=== PATIENT | female | born 1980 | race Caucasian/White ===

== ENCOUNTER 2025-03-19 12:26 | Emergency (ER) | payer OTHER, SELFPAY ==
[2025-03-19 12:30] VITALS: BP 149/89; PULSE 100; RESP 16; TEMP 36.6; O2SAT 100
--- OUTSIDE RECORDS SUMMARY | 2025-03-19 12:30 | XMS_ITS | Continuity of Care Document ---
Author Organization [facility] Address [address] [facility] [address] [place] [address] Phone Care Team Providers Care Respiratory Care Practitioner Name Role Phone Ardon Ramon Unavailable Unavailable Allergies, Adverse Reactions, Alerts Substance Reaction Status Criticality Penicillins Active No Information Medications Medication Instructions Dosage Effective Dates (start - stop) Status Comments amitriptyline 50 mg tablet TAKE 1 TABLET BY MOUTH ONCE DAILY AT BEDTIME - Active lisinopril 5 mg tablet TAKE 1 TABLET BY MOUTH ONCE DAILY - Active meloxicam 15 mg tablet TAKE 1 TABLET BY MOUTH ONCE DAILY - Active sumatriptan 100 mg tablet TAKE 1 TABLET BY MOUTH AT ONSET OF MIGRAINE; MAY REPEAT IN 2 HOURS NEEDED; MAX 2 TABLETS IN 24 HOURS - Active insulin lispro (U-100) 100 unit/mL subcutaneous solution INJECT UP TO 180 UNITS PER DAY IN DIVIDED DOSES VIA INSULIN PUMP - Active metformin ER 500 mg tablet,extended release 24 hr - Active amitriptyline 25 mg tablet TAKE 1 TABLET BY MOUTH ONCE DAILY AT BEDTIME - Active buspirone 15 mg tablet TAKE 1 TABLET BY MOUTH TWICE DAILY - Active clindamycin HCl 300 mg capsule TAKE 1 CAPSULE BY MOUTH THREE TIMES DAILY FOR 7 DAYS - Active cephalexin 500 mg capsule - Active gabapentin 100 mg capsule - Active tramadol 50 mg tablet TAKE 1 TO 2 TABLET S BY MOUTH EVERY 4 TO 6 HOURS NEEDED FOR PAIN. MAX 5/24 HOUR - Active acyclovir 800 mg tablet TAKE ONE TABLET FIVE TIMES A DAY FOR 7 DAYS - Active lidocaine 5 % topical patch USE 1 PATCH EXTERNALLY ONCE DAILY TO MOST PAINFUL AREA AND REMOVE AFTER 12 HOURS. MAY REAPPLY A NEW PATCH 12 HOURS LATER - Active cyclobenzaprine 5 mg tablet - Active methylprednisolone 4 mg tablets in a dose pack - Active Procedures Procedure Date OFFICE/OUTPATIENT VISIT EST Wrist Long and Short Splint Wrist Long and Short Splint OFFICE/OUTPATIENT VISIT NEW Advance Directives Directive Yes / No Effective Date File Name No Information Encounters Encounter Description Practice Location Reason(s) For Visit Diagnoses Date Provider Providers Copied on Encounter [facility], [address], [place], [address], [place] tel:[phone] [facility] Osteoarthritis of carpometacarpal (CMC) joint of right thumb, unspecified osteoarthritis typeRight carpal tunnel syndrome Ardon Ramon. [address] [facility] [address], [place], [place], [address] . tel:[phone] OFFICE/OUTPA TIENT VISIT EST [facility], [address] [facility] [address], [place], [address], [place] tel:[phone] [facility] Osteoarthritis of carpometacarpal (CMC) joint of left thumb, unspecified osteoarthritis typeOsteoarthriti s of carpometacarpal (CMC) joint of right thumb, unspecified osteoarthritis typeLeft carpal tunnel syndromeRight carpal tunnel syndrome 5 Ardon Ramon. [address], [place], [place], [address] . tel:[phone] Referring Provider: Julee Schulte, [address] [facility] [address], [place], [address] . tel:[phone] OFFICE/OUTPA TIENT VISIT NEW [facility], [address], [place], [address], [place] tel:[phone] [facility] Vicki Right carpal tunnel syndromeLeft carpal tunnel syndromeOsteoarth ritis of carpometacarpal (CMC) joint of right thumb, unspecified osteoarthritis typeOsteoarthriti s of carpometacarpal (CMC) joint of left thumb, unspecified osteoarthritis type 5 Duglas Navarro. [address], [place], [place], [address] . tel:[phone] Referring Provider: Julee Schulte, [address] [facility] [address], [place], [address] . tel:[phone] Family History Family Member Type Diagnosis Age At Onset No Information Payers Payer name Insurance type Covered libertarian ID Yumiko lovelace(s) [employer] OT [id number] Social History Type Description Quantity Date Captured Comments Alcohol Use Details Unknown Caffeine Use Details Unknown Tobacco Use Status No Information Smoking Status No Information Sex Female Chief Complaint And Reason For Visit No Information Reason For Referral Reason For Referral No Information Plan Of Treatment Date Type Action Status Referral Ordered: Maxim Holly -Allopathic & Osteopathic Physicians : Physical Medicine & Rehabilitation (related to Left carpal tunnel syndrome) ordered Referral Ordered: MUSC TEST DONE W/N TEST COMP (EMG/NCS) Bilateral arm ordered Referral Referred To: Maxim Holly [address] [place], [place], [phone] Ordered: Referrals: Allopathic & Osteopathic Physicians : Physical Medicine & Rehabilitation. Maxim Holly. Diagnostic testing ordered Appointment Linette Shen Cancelled Appointment Linette Shen Scheduled Future Order: Lab Order Hemoglob in A1c ([id number]), Ordered on: Ordered History Of Present Illness Encounter Date Complaint History Of Prese nt Illness No Information Functional Status Date Functional Assessmen t No Information Instructions Date Instruction Additional Infor mation No Information Assessments Type Assessment Date assessment Osteoarthritis of ca rpometacarpal (CMC) joint of right thumb, unspecified osteoarthritis type May-06-2025 assessment Right carpal tunnel syndrome February Patient Care Teams Name Effective Dates (start - stop) Status Members No Information
--- NOTE | 2025-03-19 13:18 | ED_ITS ---
HPI - GI Bleed General Chief complaint: GI Bleed Stated complaint: rectal bleeding Time Seen by Provider: 03/19/25 12:51 Source: patient Mode of arrival: ambulatory Limitations: no limitations History of Present Illness HPI Narrative: This is a 45 year old female that presents to the ER for rectal bleeding. Reports she filled the toilet bowl with bright red blood today which concerned her and prompted her to be seen. Reports some history of constipation. Denies fevers, abdominal pain, diarrhea. Related Data Allergies Allergy/AdvReac Type Severity Reaction Status Date / Time Penicillins Allergy Mild Rash Verified 03/19/25 12:28 Review of Systems 2 Review of Systems: All systems reviewed & are unremarkable except as noted in HPI and below PMFSH Past Medical History Medical History (Updated 03/19/25 @ 14:25 by Tonie Garcia PA-C) Hyperlipidemia History of diabetes mellitus History of PCOS Surgical History Surgical History (Updated 03/19/25 @ 13:20 by Tonie Garcia PA-C) History of hysterectomy Social History Social History (Updated 03/19/25 @ 13:20 by Tonie Garcia PA-C) Smoking status: Never smoker Exam 2 Narrative: GENERAL: Well-appearing, well-nourished, and in no acute distress. HEAD: Normocephalic, atraumatic. EYES: EOMI. CHEST: Clear to auscultation. No respiratory distress. No wheezes rales or rhonchi HEART: Regular rate and rhythm. No murmur heard. Normal peripheral pulses. ABDOMEN: Soft, nontender, nondistended, normal active bowel sounds. EXTREMITIES: Normal range of motion. No edema. SKIN: Warm, dry, no rash. NEURO: No focal deficits. Alert and oriented x3. PSYCH: Normal mood and affect RECTAL: Small, external hemorrhoid, mild oozing of blood Course Course Emergency Course: Patient updated on her workup and agrees with plan of care Vital Signs Vital signs: Vital Signs Temperature 97.9 F 03/19/25 12:30 Pulse Rate 100 03/19/25 12:30 Respiratory Rate 16 03/19/25 12:30 Blood Pressure 149/89 H 03/19/25 12:30 Pulse Oximetry 100 03/19/25 12:30 Oxygen Delivery Room Air 03/19/25 12:30 Temperature 97.9 F 03/19/25 12:30 Pulse Rate 113 H 03/19/25 13:33 Respiratory Rate 16 03/19/25 13:27 Blood Pressure 149/117 H 03/19/25 13:33 Pulse Oximetry 100 03/19/25 13:27 Oxygen Delivery Room Air 03/19/25 12:30 MDM - GI Bleed MDM Narrative Medical decision making narrative: Patient presents to the emergency department for bright red blood per rectum. Blood pressure is stable. Mild oozing on exam from a small external hemorrhoid. Hemoglobin is 15.4. Metabolic panel with hyperglycemia. Patient is a known diabetic. Urine without evidence of infection. Was instructed on care of constipation. Will be started on hydrocortisone cream. She is to follow up with gastroenterology. She was given warnings to return to the ER Differential Diagnosis Differential diagnosis: Likely hemorrhoids, Lower gastrointestinal hemorrhage, hematochezia and anal fissure Lab Data Attestation: I reviewed the patient's lab results. 03/19/25 13:29 03/19/25 13:29 Labs: Lab Results 03/19/25 03/19/25 Range/Units 13:29 13:47 WBC 9.7 (4.5-10.0) K/mm3 RBC 5.25 (4.2-5.4) M/mm3 Hgb 15.4 H (12.0-15.0) g/dL Hct 46.6 (37.0-47.0) % MCV 88.8 (80-100) fl MCH 29.3 (26-34) pg MCHC 33.0 (32-36) g/dl RDW 13.7 (11.5-14.5) % Plt Count 193 (150-375) k/mm3 MPV 11.7 H (7.4-10.4) fl Immature Gran % (Auto) 1.1 H (0-0.5) % Neut % (Auto) 56.5 (45.5-73.1) % Lymph % (Auto) 33.2 (18.3-44.2) % [place] % (Auto) 6.8 (2.6-8.5) % Eos % (Auto) 1.7 (0-4.4) % Baso % (Auto) 0.7 (0.2-1.2) % Lymph # (Auto) 3.23 H (0.9-3.2) K/mm3 [place] # (Auto) 0.7 H (0.1-0.6) K/mm3 Eos # (Auto) 0.2 (0-0.3) K/mm3 Baso # (Auto) 0.1 (0.0-0.1) K/mm3 Abs Immat Gran (auto) 0.11 H (0.00-0.031) K/mm3 Absolute Neuts (auto) 5.5 (1.3-6.7) K/mm3 Absolute Nucleated RBC 0.000 (0.0-0.012) K/mm3 Nucleated RBC % 0.0 (0.0-0.2) % PT 12.6 (11.1-14.7) Seconds INR 0.9 APTT 28.8 (22.3-36.8) Seconds Sodium 138 (137-145) mmol/L Potassium 4.0 (3.4-5.0) mmol/L Chloride 104 (98-107) mmol/L Carbon Dioxide 22 (22-30) mmol/L Anion Gap 12 (4-12) mmol/L BUN 17 (7-17) mg/dL Creatinine 0.62 L (0.7-1.0) mg/dL Estim Creat Clear Calc 139 ml/min Estimated GFR > 60 (59 - ) Glucose 355 H (65-110) mg/dL Calcium 9.1 (8.4-10.2) mg/dL Total Bilirubin 0.4 (0.2-1.3) mg/dL AST 25 (14-36) U/L ALT 28 (6-35) U/L Alkaline Phosphatase 121 (38-126) U/L Total Protein 7.1 (6.3-8.2) g/dL Albumin 4.2 (3.5-5.1) g/dL Urine Color Yellow (Yellow) Urine Appearance Clear (Clear) Urine pH 5.0 (5.0-9.0) Ur Specific [place] 1.042 H (1.001-1.035) Urine Protein Negative (Negative) mg/dL Urine Glucose (UA) 3+ H (Negative) mg/dL Urine Ketones Trace H (Negative) mg/dL Ur Blood (Man) Negative (Negative) Urine Nitrate Negative (Negative) Urine Bilirubin Negative (Negative) Urine Urobilinogen 0.2 (<2.0) mg/dL Leukocyte Esterase Rfl Negative (Negative) MOUNA/UL Critical Care Time Critical Care Time Critical Care Time: No Discharge Plan Discharge Clinical Impression: Hemorrhoids Qualifiers: Hemorrhoid type: unspecified Qualified Code(s): K64.9 - Unspecified hemorrhoids Patient Disposition: Home Condition: Stable Instructions: Hemorrhoids (ED) Additional Instructions: Return to the ER if you experience fever, abdominal pain with nausea and vomiting, you are unable to keep down liquids or solids, or any other symptoms that are concerning to you Remain well hydrated. Take Colace daily. Increase fruit and vegetables in your diet. Apply hydrocortisone as prescribed Follow up with gastroenterology Patient Language: Spanish Prescriptions: New hydrocortisone [Procto-Med HC] 2.5 % cream with perineal applicator 1 applic RECTAL DAILY 7 Days Qty: 30 0RF Follow-up/Referrals: PHYSICIAN NOT ON STAFF,NONSTAFF [Non-Staff] - Frankie Main MD [Physician] -
[2025-03-19 13:27] VITALS: BP 146/88; PULSE 96; RESP 16; O2SAT 100
[2025-03-19 13:30] VITALS: BP 157/75; PULSE 103
[2025-03-19 13:32] VITALS: BP 150/95; PULSE 99
[2025-03-19 13:33] VITALS: BP 149/117; PULSE 113
[2025-03-19 13:38] LABS: Basophils Absolute Auto 0.1 K/mm3 (0.0-0.1); Basophils Percent Auto 0.7 % (0.2-1.2); Eosinophils Absolute Auto 0.2 K/mm3 (0-0.3); Eosinophils Percent Auto 1.7 % (0-4.4); Hematocrit 46.6 % (37.0-47.0); Hemoglobin 15.4 g/dL (12.0-15.0); Immature Granulocyte Absolute 0.11 K/mm3 (0.00-0.031); Immature Granulocyte Percent A 1.1 % (0-0.5); Lymphocytes Absolute Auto 3.23 K/mm3 (0.9-3.2); Lymphocytes Percent Auto 33.2 % (18.3-44.2); Mean Corpuscular Hemoglobin 29.3 pg (26-34); Mean Corpuscular Volume 88.8 fl (80-100); Mean Platelet Volume 11.7 fl (7.4-10.4); Monocytes Absolute Auto 0.7 K/mm3 (0.1-0.6); Monocytes Percent Auto 6.8 % (2.6-8.5); Neutrophils Absolute Auto 5.5 K/mm3 (1.3-6.7); Neutrophils Percent Auto 56.5 % (45.5-73.1); Platelet Count Result 193 k/mm3 (150-375); Red Blood Count 5.25 M/mm3 (4.2-5.4); Red Cell Distribution Width 13.7 % (11.5-14.5); White Blood Count 9.7 K/mm3 (4.5-10.0)
[2025-03-19 13:50] LABS: INR 0.9; Prothrombin Time 12.6 Seconds (11.1-14.7)
[2025-03-19 13:51] LABS: Alanine Aminotransferase 28 U/L (6-35); Albumin Level 4.2 g/dL (3.5-5.1); Alkaline Phosphatase 121 U/L (38-126); Anion Gap 12 mmol/L (4-12); Aspartate Amino Transferase 25 U/L (14-36); Bilirubin,Total 0.4 mg/dL (0.2-1.3); Blood Urea Nitrogen 17 mg/dL (7-17); Calcium 9.1 mg/dL (8.4-10.2); Carbon Dioxide 22 mmol/L (22-30); Chloride 104 mmol/L (98-107); Estimated CRCL calculation 139 ml/min; Estimated Glomerular Filt Rate > 60; Glucose 355 mg/dL (65-110); Partial Thromboplastin Time 28.8 Seconds (22.3-36.8); Sodium 138 mmol/L (137-145); Total Protein 7.1 g/dL (6.3-8.2)
--- OUTSIDE RECORDS SUMMARY | 2025-03-19 13:56 | XMS_ITS | Clinical Summary ---
Author Organization [facility] Address [address] [place] [address] Care Team Providers Care Managing Editor Name Role Phone [place] Primary Care Provider [phone] Allergies Active Allergy Reactions Criticality Noted Date Comments Penicillins Hives High 12/04/2015 Medications INSULIN LISPRO (HUMALOG KWIKPEN SUBCUT) Inject by subcutaneous injection. Active INSULIN NPH HUMAN ISOPHANE (HUMULIN N KWIKPEN SUBCUT) Inject by subcutaneous injection. Active nystatin (MYCOSTATIN) 100,000 unit/gram Cream Apply to affected area 2 times daily. Active fluconazole (DIFLUCAN) 150 mg tablet Take 1 Tablet (150 mg) by mouth twice weekly. 2 Tablet 1 6 Active norethindrn a-e estradiol-iron (MICROGESTIN FE 11/05, ,) 1 mg-20 mcg (21)/75 mg (7) tablet Take 1 Tablet by mouth daily. 28 Tablet 12 6 Active SUMAtriptan (IMITREX) 100 mg tablet TAKE 1 TABLET BY MOUTH NEEDED FOR HEADACHE DIRECTED 9 Tablet 0 6 Active Active Problems No known active problems Family History Medical History Relation Name Comments Diabetes Father type 1 Diabetes Mother type 2 Cancer Other great grandfath er on moms side Heart Disease Other mom's mom Heart Failure Other mom brother he artattack Cancer Paternal Aunt Relation Name Status Comments Father Mother Other Paternal Aunt Social History Tobacco Use Types Packs/Day Years Used Date Smoking Tobacco: Never Alcohol Use Standard Drinks/Week Comments Yes 0 (1 standard drink = 0.6 oz pur e alcohol) rare Comments Unknown Sex and Gender Information Value Date Recorded Sex Assigned at Not on file Legal Sex Female 5:37 PM CHOPPING MACHINE OPERATOR Gender Identity Not on file Sexual Orientation Not on file Last Filed Vital Signs Vital Sign Reading Time Taken Comments Blood Pressure 120/74 12/04/2015 8:11 AM CHOPPING MACHINE OPERATOR Pulse - - Temperature - - Respiratory Rate - - Oxygen Saturation - - Inhaled Oxygen Concentration - - Weight 130.2 kg (287 lb) 12/04/2015 8:11 AM CHOPPING MACHINE OPERATOR Height 165.1 cm (5' 5) 12/04/2015 8:11 AM CHOPPING MACHINE OPERATOR Body Mass Index 47.76 12/04/2015 8:11 AM CHOPPING MACHINE OPERATOR Plan of Treatment Health Maintenance Due Date Last Done Comments DTAP/TDAP/TD VACCINES (1 - Tdap) 1997 HEPATITIS B VACCINES (1 of 3 - 19+ 3-dose series) 01/1997 BREAST CANCER SCREENING 2018 PAP SMEAR 12/04/2018 12/04/2015 CERVICAL CANCER SCREENING 12/04/2020 HPV/Cotest (21-29) 12/04/2020 12/04/2015 HPV/Cotest (30-65) 12/04/2020 12/04/2015 COLORECTAL SCREENING 2023 Colorectal Cancer Screening 2023 FIT-DNA Q 3 years 2023 FIT/FOBT Q 1 year 2023 Flex Sig/CT Colonography Q 5 years 2023 INFLUENZA VACCINE (#1) 2024 Procedures Procedure Name Priority Date/Time Associated Diagnosis Comments CERV/VAG CYTO SCREEN PAP W/HPV Routine 12/04/2015 9:07 AM CHOPPING MACHINE OPERATOR Well female exam with routine gynecological exam Routine cervical smear Special screening examination for human papillomavirus (HPV) from Last 3 Months or Most Recently Relevant to Health Maintenance Results * (ABNORMAL) CERV/VAG CYTOPATH, THIN PREP PLANT NURSERY WORKER AND HPV (CP) (12/04/2015 9:07 AM CHOPPING MACHINE OPERATOR) CLINICAL INFORMATION SEE COMMENT 12/11/2015 12:15 PM CHOPPING MACHINE OPERATOR [facility] Comment:PT IS HIGH RISK SCRE ENING LAST MENSTRUAL PERIOD [id number]/11/2015 12:15 PM CHOPPING MACHINE OPERATOR [facility] PREV PAP: SEE COMMENT 12/11/2015 12:15 PM CHOPPING MACHINE OPERATOR [facility] Comment:INFORMATION NOT PROV IDED PREV BX: SEE COMMENT 12/11/2015 12:15 PM CHOPPING MACHINE OPERATOR [facility] Comment:INFORMATION NOT PROV IDED SOURCE Endocervix 12/11/2015 12:15 PM CHOPPING MACHINE OPERATOR [facility] ADEQUACY: SEE COMMENT 12/11/2015 12:15 PM CHOPPING MACHINE OPERATOR [facility] Comment: Satisfactory for evaluation. Endocervical/transformation zone component present. GENERAL CATEGORIZATION: SEE COMMENT(A) 12/11/2015 12:15 PM CHOPPING MACHINE OPERATOR [facility] Comment:EPITHELIAL CELL ABNO RMALITY INTERPRETATION SEE COMMENT(A) 12/11/2015 12:15 PM CHOPPING MACHINE OPERATOR [facility] Comment: Atypical Squamous Cells of Undetermined Significance (ASC-US) COMMENT SEE COMMENT 12/11/2015 12:15 PM CHOPPING MACHINE OPERATOR [facility] Comment: This Pap test has been evaluated with computer assisted technology. Suggest clinical correlation and follow-up as clinically appropriate LINK ASSEMBLER: SEE COMMENT 12/11/2015 12:15 PM CHOPPING MACHINE OPERATOR [facility] Comment: BAB, CT(ASCP) CT screening location: [place] [address] [address] Anders [address] PATHOLOGIST SEE COMMENT 12/11/2015 12:15 PM CHOPPING MACHINE OPERATOR [facility] Comment: Nile Jorge M.D., Board Certified in Anatomic Pathology and Cytopathology. (electronic signature) HPV E6/E7 Not Detected Not Detected 12/11/2015 12:15 PM CHOPPING MACHINE OPERATOR [facility] Comment: This test was performed using the APTIMA HPV Assay ([employer] This assay detects E6/E7 viral messenger RNA (mRNA) from 14 high-risk HPV types (16,18,31,33,35,39,45,51,52,56,58,59,66,68). Endocervical Collection / Unknown 12/04/2015 9:07 AM CHOPPING MACHINE OPERATOR 12/04/2015 9:16 PM CHOPPING MACHINE OPERATOR Narrative [facility] - 12/11/2015 12:15 PM CHOPPING MACHINE OPERATOR Performing Organization Information: [facility] ID: [facility] Address: [facility] Administration [place]royo [address] Director: Willi Jiménez MD Ellen Iyer SUPERVISOR AIRPLANE FLIGHT ATTENDANT PATHOLOGY/CYTOLOGY ORDERABLES Fi nal Result [facility] [address] [place] [address], from Last 3 Months or Most Recently Relevant to Health Maintenance Care Teams Managing Editor Relationship Specialty Start Date End Date Julee Perales DO [address] [place] [address] PCP - General Family Practice 12/04/15
--- OUTSIDE RECORDS SUMMARY | 2025-03-19 13:56 | XMS_ITS | Continuity of Care Document ---
Author Organization [facility] Address [address] [facility] [address] [place] [address] Phone Care Team Providers Care Police Dispatcher Name Role Phone Ardon Ramon Unavailable Unavailable [...] Providers Copied on Encounter [facility], [address], [place], [address], [place] tel:[phone] [facility] Osteoarthritis of carpometacarpal (CMC) joint of right thumb, unspecified osteoarthritis typeRight carpal tunnel syndrome Ardon Ramon. [address], [place], [place], [address] . tel:[phone] OFFICE/OUTPA TIENT VISIT EST [facility], [address] [facility] [address], [place], [address], [place] tel:[phone] [facility] Osteoarthritis of carpometacarpal (CMC) joint of left thumb, unspecified osteoarthritis typeOsteoarthriti s of carpometacarpal (CMC) joint of right thumb, unspecified osteoarthritis typeLeft carpal tunnel syndromeRight carpal tunnel syndrome 5 Ardon Ramon. [address], [place], [place], [address] . tel:[phone] Referring Provider: Julee Schulte, [address] [facility] [address], [place], [address] . tel:[phone] OFFICE/OUTPA TIENT VISIT NEW [facility], [address], [place], [address], [place] tel:[phone] [facility] [place] Right carpal tunnel syndromeLeft carpal tunnel syndromeOsteoarth ritis of carpometacarpal (CMC) joint of right thumb, unspecified osteoarthritis typeOsteoarthriti s of carpometacarpal (CMC) joint of left thumb, unspecified osteoarthritis type 5 Duglas Navarro. [address], [place], [place], [address] . tel:[phone] Referring Provider: Julee Schulte, [address] [facility] [address], [place], [address] . tel:[phone] Family History Family Member Type Diagnosis Age At Onset No Information Payers Payer name Insurance type Covered republican ID Yumiko lovelace(s) [employer] OT [id number] Social History Type Description Quantity Date Captured [...] arm ordered Referral Referred To: Maxim Holly [address] [place], [place], [phone] Ordered: Referrals: Allopathic & Osteopathic Physicians : Physical Medicine & Rehabilitation. Maxim Holly. Diagnostic testing ordered Appointment Linette Shen Cancelled Appointment Linette Shen Scheduled Future Order: Lab Order Hemoglob in A1c ([id number]), Ordered on: Ordered History Of Present Illness [...]
--- OUTSIDE RECORDS SUMMARY | 2025-03-19 13:56 | XMS_ITS | Clinical Summary ---
Author Organization [facility] [employer] Address [address] [place] [address] Care Team Providers Care Engineer Technician Name Role Phone Julee Perales DO Primary Care Provider [phone] Julee Perales DO Unavailable [phone] Source Comments [facility],non-owned Affiliates and Associated Physician Practices is amultiple site organization consisting of ambulatory clinics and hospital sitesin [place], [place], [place] and [place]. This disclosure is being madepursuant to the Care Everywhere program and may not contain all information available regarding this patient. Last updated 18.[facility] Allergies Active Allergy Reactions Criticality Noted Date Comments Penicillins Rash Low 11/23/2014 Penicillins Swelling 11/10/2016 Medications * Be aware that medications may not be up to date on this document. Alwaysverify current medications with the patient. Insulin NPH Human, Isophane, (HUMULIN N SC) Inject 20 Units subcutaneously 2 times daily after meals Active SUMAtriptan (IMITREX) 100 MG tablet Take 100 mg by mouth once as needed 09/14/20 20 Active OZEMPIC, 0.25 OR 0.5 MG/DOSE, 2 MG/1.5ML pen Inject 0.25 mg subcutaneously every 7 days 10/14/20 20 Active Insulin Lispro (HUMALOG KWIKPEN) 100 UNIT/ML 25 Units Pump And Sliding scale 12/12/19 21 Active albuterol HFA (PROVENTIL; VENTOLIN; PROAIR) 108 (90 Base) MCG/ACT inhalerIndicati ons:Acute bronchitis, unspecified organism Inhale 2 (two) puffs by mouth every 6 hours as needed for Wheezing or Cough 1 g 09/08/20 21 Active benzonatate (Tessalon) 100 MG capsule 02/06/20 24 Active celecoxib (CeleBREX) 100 MG capsule Take 1 (one) capsule by mouth once daily 01/25/20 23 Active D3-50 1.25 MG (57857 UT) Take 1 capsule by mouth 12/26/19 23 Active metFORMIN ER 24hr (Glucophage XR) 500 MG tablet Take 2 (two) tablets by mouth 2 times daily 09/21/20 23 Active rosuvastatin (Crestor) 10 MG tablet Take 1 (one) tablet by mouth once daily 02/02/20 23 Active insulin lispro (HumaLOG) 100 UNIT/ML vial INJECT UP TO 180 UNITS PER DAY IN DIVIDED DOSES VIA INSULIN PUMP 01/05/20 24 Active Rybelsus 7 MG tablet 02/02/20 24 Active methylPREDNISol one (Medrol Dosepak) 4 MG tablet Take by mouth as directed Take as directed by mouth per package instructions. 21 tablet 02/11/20 24 Active traMADol (Ultram) 50 MG tablet Take 1 (one) tablet by mouth every 6 hours as needed for Pain 12 tablet 02/28/20 24 Active cyclobenzaprine (Flexeril) 5 MG tablet Take 1 (one) tablet by mouth 3 times daily as needed (Muscle spasms) 30 tablet 02/28/20 24 Active lidocaine (Lidoderm) 5 % patch Apply 1 (one) patch to skin once daily Apply patch to most painful area and remove after 12 hours. May reapply a new patch 12 hours later. 20 patch 03/02/20 24 Active gabapentin (Neurontin) 100 MG capsule Take 1 (one) capsule by mouth 3 times daily 30 capsule 03/02/20 24 Active Active Problems Problem Noted Date Diagnosed Date Diabetes mellitus 03/21/2024 Overview (03/21/2024): no current tx. Diabetes mellitus 03/21/2024 Overview (03/21/2024): no current tx. 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 Encounters Date Type Department Care Team Description 01/08/2025 Telephone [facility] [address] [place] [address] Renetta Odonnell RN High Risk Follow Up 12/26/2024 2:09 PM CDT - 12/26/2024 11:59 PM CDT Hospital Encounter [facility] [address] [address] Julee Perales DO Discharge Disposition: Home or Self Care from Last 3 Months Family History Medical History Relation Name Comments Diabetes Brother 1 Cancer - Lung Father Diabetes Father Cancer - Breast Maternal Aunt 1 Cancer - Breast Maternal Aunt 2 None Known Maternal Grandfather None Known Maternal Grandmother None Known Maternal Uncle 1 Diabetes Mother Cancer - Cervical Paternal Aunt 1 Jessica None Known Paternal Grandfather None Known Paternal Grandmother Relation Name Status Comments Brother 1 Brother 2 Alive Brother 3 Alive Father Maternal Aunt 1 Maternal Aunt 2 Alive Maternal Aunt 3 Alive Maternal Grandfather Maternal Grandmother Maternal Uncle 1 Maternal Uncle 2 Alive Mother Paternal Aunt 1 Jessica Paternal Aunt 2 Alive Paternal Aunt 3 Alive Paternal Aunt 4 Alive Paternal Grandfather Paternal Grandmother Social History Tobacco Use Types Packs/Day Years Used Date Smoking Tobacco: Never Smokeless Tobacco: Never Tobacco Cessation:Counseling Given: Not Answered Alcohol Use Standard Drinks/Week Comments No 0 (1 standard drink = 0.6 oz pur e alcohol) social AUDIT-C Answer Date Recorded Q1: How often do you have a drink containing alcohol? Monthly or less 03/06/2023 Q2: How many drinks containi ng alcohol do you have on a typical day when you are drinking? Patient does not drink Q3: How often do you have si x or more drinks on one occasion? Less than monthly 03/06/2023 Comments Unknown Sex and Gender Information Value Date Recorded Sex Assigned at Not on file Legal Sex Female 6:53 AM SALES ESTIMATOR Gender Identity Not on file Sexual Orientation Not on file Last Filed Vital Signs Vital Sign Reading Time Taken Comments Blood Pressure 164/93 03/21/2024 7:30 PM CDT Pulse 117 03/21/2024 2:37 PM CDT Temperature 36.9 C (98.4 F) 03/21/2024 2:37 PM CDT Respiratory Rate 20 03/21/2024 2:37 PM CDT Oxygen Saturation 97% 03/21/2024 7:30 PM CDT Inhaled Oxygen Concentration - - Weight 129.3 kg (285 lb) 12/26/2024 2:13 PM CDT Height 175.3 cm (5' 9) 12/26/2024 2:13 PM CDT Body Mass Index 42.09 12/26/2024 2:13 PM CDT Plan of Treatment Upcoming Encounters Date Type Department Care Team (Late st Contact Info) Description 03/25/2025 1:00 PM CDT Office Visit [facility] - Surgery [address] [id number] SqJing bustillos, ADMINISTRATIVE ASSISTANT-GRAPHIC COORDINATOR [address] [place] [id number] Health Maintenance Due Date Last Done Comments COLOGUARD (AGES 45-75) - COLON CA SCREENING 1978 COLON MONITORING 1978 COLONOSCOPY - COLON CA SCREENING 1978 CT COLONOGRAPHY - COLON CA SCREENING 1978 Colorectal Cancer Screening 1978 FIT - COLON CA SCREENING 1978 FLEX SIG - COLON CA SCREENING 1978 HIV SCREENING 1993 HEPATITIS C SCREENING 02/13/1996 DTAP/TDAP/TD VACCINES (1 - Tdap) 1997 HEPATITIS B VACCINE (1 of 3 - 19+ 3-dose series) 1997 PNEUMOCOCCAL VACCINE (1 of 2 - PCV) 1997 DIABETES RETINOPATHY SCREENING 03/21/2024 DIABETES-FOOT EXAM WITH MONOFILAMENT 03/21/2024 DIABETES-HGB A1C 03/21/2024 11/23/2014 COVID-19 VACCINE (4 - 2023-25 season) 2024 08/31/2021, 12/05/2020, 11/14/2020 DEPRESSION SCREENING 10/17/2024 DIABETES - URINE PROTEIN SCREENING 10/17/2024 DIABETES-SERUM CREATININE 03/21/20252023, 02/28/2024, 03/06/2023, Additional history exists INFLUENZA VACCINE (Season Ended) 2025 MAMMOGRAM 12/26/2026 12/26/2024, 08/15/2023 ZOSTER VACCINE (1 of 2) 02/18/2028 HIB VACCINE Aged Out No longer eligi ble based on patient's age to complete this topic HPV VACCINE Aged Out No longer eligi ble based on patient's age to complete this topic MENINGOCOCCAL (Group B) VACCINE SHARED DECISION-MAKING Aged Out No longer eligible based on patient's age to complete this topic MENINGOCOCCAL GROUPS A/C/Y/W VACCINE Aged Out No longer eligible based on patient's age to complete this topic Procedures Procedure Name Priority Date/Time Associated Diagnosis Comments MAMMO BILAT SCREENING W RAJENDRA Routine 12/26/2024 2:27 PM CDT Encounter for screening mammogram for malignant neoplasm of breast COMPREHENSIVE METABOLIC PANEL STAT 03/21/2024 3:01 PM CDT HEMOGLOBIN A1C Add on 11/23/2014 8:13 AM SALES ESTIMATOR from Last 3 Months or Most Recently Relevant to Health Maintenance Results * Mammo Bilat Screening W Rajendra (12/26/2024 2:27 PM CDT) Anatomical Region Laterality Modality Breast Bilateral Mammography 12/27/2024 10:5 0 AM CDT Impressions 12/27/2024 10:51 AM CDT IMPRESSION: There is no mammographic evidence of malignancy. OVERALL FINAL ASSESSMENT: BI-RADS Category 1: Negative. Annual screening mammography is recommended. Based upon the information provided by the patient, she has an elevated lifetime risk (=/>20%) for developing breast cancer and meets criteria for supplemental screening with annual breast MRI. Consider referral to the [facility] for formal risk assessment and high risk clinical surveillance. > Interpreting Provider: Colleen Edawrd MD on 12/27/2024 10:51 AM Narrative 12/27/2024 10:51 AM CDT EXAMINATION: BILATERAL DIGITAL SCREENING MAMMOGRAM AND BILATERAL BREAST TOMOSYNTHESIS HISTORY: Screening. COMPARISON: Serial examinations dating back to 2022. TECHNIQUE: BILATERAL digital breast tomosynthesis (DBT) and synthetic 2D digital mammogram images were obtained (bilateral craniocaudal and mediolateral oblique projections) including computer aided detection (CAD.) BREAST PARENCHYMAL COMPOSITION:Category B: There are scattered areas of fibroglandular density. MAMMOGRAM FINDINGS: There are no new suspicious masses, calcifications, or areas of architectural distortion in either breast, and there has been no significant interval change. Julee Franca [place] DO MAMMO ORDERABLES Final Result * (ABNORMAL) COMPREHENSIVE METABOLIC PANEL (03/21/2024 3:01 PM CDT) Glucose 316(H) 70 - 105 mg/dL 03/21/2024 3:33 PM CDT [facility] Sodium 140 136 - 145 mmol/L 03/21/2024 3:33 PM CDT [facility] Potassium 4.2 3.5 - 5.1 mmol/L 03/21/2024 3:33 PM CDT [facility] Chloride 106 98 - 107 mmol/L 03/21/2024 3:33 PM CDT [facility] CO2 24 22 - 29 mmol/L 03/21/2024 3:33 PM CDT [facility] Calcium 9.4 8.4 - 10.4 mg/dL 03/21/2024 3:33 PM CDT [facility] Anion Gap 10 6 - 16 mmol/L 03/21/2024 3:33 PM CDT [facility] BUN 13 5.3 - 18.7 mg/dL 03/21/2024 3:33 PM CDT [facility] Creatinine 0.86 0.57 - 1.11 mg/dL 03/21/2024 3:33 PM CDT [facility] Alkaline Phosphatase 81 40 - 150 U/L 03/21/2024 3:33 PM CDT [facility] ALT 29 0 - 55 U/L 03/21/2024 3:33 PM CDT [facility] AST 20 5 - 34 U/L 03/21/2024 3:33 PM CDT [facility] Protein Total 7.0 6.4 - 8.3 gm/dL 03/21/2024 3:33 PM CDT [facility] Albumin 3.8 3.4 - 5.0 gm/dL 03/21/2024 3:33 PM CDT [facility] Bilirubin Total 0.4 0.2 - 1.2 mg/dL 03/21/2024 3:33 PM CDT [facility] eGFR by CKD-EPI 84(L) >=90 mL/min/1.7 3 m2 03/21/2024 3:33 PM CDT [facility] Blood BLOOD SPECIMEN / Unknown Venipuncture / Unknown 03/21/2024 3:01 PM CDT 03/21/2024 3:09 PM CDT us Key Raymond PA-C LAB - CHEMISTRY OR DERABLES Final Result [facility] [address] [id number] * (ABNORMAL) HEMOGLOBIN A1C (11/23/2014 8:13 AM SALES ESTIMATOR) Hemoglobin A1c 11.3(H) 4.2 - 6.3 % 11/23/2014 9:48 AM SALES ESTIMATOR [facility] Estimated Average Glucose 278 mg/dL 11/23/2014 9:48 AM SALES ESTIMATOR [facility] Whole Blood BLOOD SPECIMEN WITH EDTA / Unknown Venipuncture / Unknown 11/23/2014 8:13 AM SALES ESTIMATOR 11/23/2014 9:18 AM SALES ESTIMATOR us Osvaldo Cruz DO LAB - CHEMISTRY ORDERAB LES Final Result [facility] [address] [id number] from Last 3 Months or Most Recently Relevant to Health Maintenance Insurance [employer] * Guarantor: LINETTE SAMSON Account Type Relation to Patient Date of Phone Billing Address Personal/Family 1980 [address] [place] [address] Care Teams Engineer Technician Relationship Specialty Start Date End Date Julee Perales DO [address] [place] [address] PCP - General Family Medicine 11/10/16 Julee Perales DO [address] [place] [address] Family Medicine 11/10/16
[2025-03-19 13:59] LABS: Add Urine Microscopic? NO; Appearance Urine Clear (Clear); Bilirubin Urine Negative (Negative); Blood Urine Negative (Negative); Color Urine Yellow (Yellow); Glucose Urine UA 3+ mg/dL (Negative); Ketones Urine Trace mg/dL (Negative); Leukocyte Esterase Ur Negative LEU/UL (Negative); Nitrate Urine Negative (Negative); Protein Urine Negative (Negative); Specific Grav Ur 1.042 (1.001-1.035); Urobilinogen Urine 0.2 mg/dL (<2.0)
== END 2025-03-19 14:45 | disposition home or self-care (01) ==
PROVIDERS: Emergency Provider Physician Assistant
DX: K64.9 Unspecified hemorrhoids (principal); K62.5 Hemorrhage of anus and rectum
CPT/HCPCS: 36415; 80053; 81003; 85025; 85610; 85730; 99283